=== PATIENT | male | born 1970 | race Caucasian/White ===

== ENCOUNTER 2021-07-26 08:27 | Observation (INO) ==
[2021-07-26 08:53] LABS: Basophils # 0.1 10*3/uL (0.0-0.2); Basophils % 1.2 % (0.0-0.8); Eosinophils # 0.3 10*3/uL (0.0-0.87); Eosinophils % 2.2 % (0.00-10.9); Hematocrit 44.7 VOL% (42.0-52.0); Hemoglobin 14.9 GM/DL (14.0-18.0); Immature Granulocytes % 0.4 %; Immature Granulocytes Absolute 0.05 #; Lymphocytes # 2.2 10*3/uL (1.4-4.0); Lymphocytes % 18.9 % (21.2-54.2); Mean Corpuscular HGB Conc 33.3 GM/DL (32-36); Mean Corpuscular Volume 85.3 FL (87-102); Mean Platelet Volume 11.3 FL (9.6-12.0); Monocytes % 6.9 % (1.7-12.7); Neutrophils % 70.4 % (38.7-73.9); Platelet Count 316 T/CUMM (130-400); Red Blood Count 5.24 MC/CUMM (3.8-5.5); Red Cell Distribution Width 13.7 % (9.3-17.3); White Blood Count 11.6 T/CUMM (4-12)
[2021-07-26] MEDS ORDERED: ASPIRIN 325 MG TABLET PO STA ×2 (09:03→09:13)
[2021-07-26] MEDS ORDERED: NITROGLYCERIN 2% OINT 1 INCH/GM PACK TOP STA (09:13)
[2021-07-26 09:19] LABS: Basophils # 0.1 10*3/uL (0.0-0.2); Basophils % 1.1 % (0.0-0.8); Eosinophils # 0.2 10*3/uL (0.0-0.87); Eosinophils % 2.1 % (0.00-10.9); Hematocrit 43.5 VOL% (42.0-52.0); Hemoglobin 14.2 GM/DL (14.0-18.0); Immature Granulocytes % 0.5 %; Immature Granulocytes Absolute 0.05 #; Lymphocytes # 2.2 10*3/uL (1.4-4.0); Lymphocytes % 19.8 % (21.2-54.2); Mean Corpuscular HGB Conc 32.6 GM/DL (32-36); Mean Corpuscular Volume 85.8 FL (87-102); Mean Platelet Volume 11.6 FL (9.6-12.0); Monocytes % 6.7 % (1.7-12.7); Neutrophils % 69.8 % (38.7-73.9); Platelet Count 303 T/CUMM (130-400); Red Blood Count 5.07 MC/CUMM (3.8-5.5); Red Cell Distribution Width 13.9 % (9.3-17.3); White Blood Count 10.9 T/CUMM (4-12)
[2021-07-26 09:21] LABS: Albumin 3.5 G/DL (3.4-5.0); Bilirubin,Total 0.9 MG/DL (0.20-1.00); Calcium 8.7 MG/DL (8.5-10.1); Osmolality,Calculated 279.8 MOS/KG (273-304); Potassium 3.8 MMOL/L (3.5-5.1); Total Protein 7.7 G/DL (6.4-8.2)
[2021-07-26 09:35] LABS: PT Patient Result 11.6 SECS (10.5-12.0); Partial Thromboplastin Time 32.8 SECS (23.9-33.8)
[2021-07-26 10:02] LABS: Atypical Lymphocytes Few; Platelet Estimate Increased
[2021-07-26] MEDS ORDERED: ONDANSETRON 4 MG/2 ML VIAL IV PRN (11:18)
[2021-07-26] MEDS ORDERED: ACETAMINOPHEN 325 MG TABLET PO PRN (11:18)
[2021-07-26] MEDS ORDERED: GLUCAGON 1 MG VIAL IM PRN (11:18)
[2021-07-26] MEDS ORDERED: traZODone 50 MG TABLET PO PRN (11:18)
[2021-07-26] MEDS ORDERED: DOCUSATE SODIUM 100 MG CAPSULE PO PRN (11:18)
[2021-07-26] MEDS ORDERED: LACTULOSE 20 GM/30 ML UDCUP PO PRN (11:18)
[2021-07-26] MEDS ORDERED: DEXTROSE 50% 25 GM/50 ML VIAL IV PRN (11:18)
[2021-07-26] MEDS ORDERED: NITROGLYCERIN SL 0.4 MG TABLET SL PRN (11:23)
[2021-07-26] MEDS ORDERED: MORPHINE 2 MG/1 ML SYRINGE IV PRN (11:23)
[2021-07-26] MEDS ORDERED: LOSARTAN 50 MG TABLET PO SCH (11:30)
[2021-07-26] MEDS ORDERED: ENOXAPARIN 40 MG/0.4 ML SYRINGE SUBCUT SCH (11:30)
[2021-07-26] MEDS: PANTOPRAZOLE 40 MG TABLET PO SCH (12:39)
[2021-07-26] MEDS: INSULIN REGULAR 100 UNIT/ML SUBCUT SCH ×3 (12:41→20:57)
[2021-07-26] MEDS ORDERED: carvediloL 3.125 MG TABLET PO STA ×2 (13:05→14:31)
[2021-07-26] MEDS: NICOTINE 21 MG/24 HR PATCH TRANSDERM SCH (13:12)
[2021-07-26 13:19] LABS: Bacteria,Urine Occasional /HPF (Few); Bilirubin,Urine Negative (Negative); Blood, Urine Negative (Negative); Glucose,Urine (UA) >=500 mg/dL (Negative); Ketones,Urine Negative (Negative); Mucus,Urine Occasional /LPF (Occasional); Nitrite,Urine Negative (Negative); Protein,Urine Negative; Urine Appearance CLEAR (Clear); Urine Color Straw (Yellow); Urine Specific Gravity 1.005 (1.001-1.035); Urine Urobilinogen < 2.0 EU/DL (0.2-1.0)
[2021-07-26] MEDS ORDERED: ALUM/MAG/SIMETH/LIDO VISC 1:1 30 ML BOTTLE PO STA (13:55)
[2021-07-26] MEDS: ROSUVASTATIN 20 MG TABLET PO SCH (14:35)
[2021-07-26] MEDS: carvediloL 3.125 MG TABLET PO SCH (20:06)
[2021-07-26] MEDS ORDERED: carvediloL 6.25 MG TABLET PO SCH (21:00)
[2021-07-27 04:56] LABS: Basophils # 0.2 10*3/uL (0.0-0.2); Basophils % 1.4 % (0.0-0.8); Eosinophils # 0.3 10*3/uL (0.0-0.87); Eosinophils % 2.7 % (0.00-10.9); Hematocrit 43.5 VOL% (42.0-52.0); Hemoglobin 14.1 GM/DL (14.0-18.0); Immature Granulocytes % 0.5 %; Immature Granulocytes Absolute 0.06 #; Lymphocytes # 3.3 10*3/uL (1.4-4.0); Lymphocytes % 27.7 % (21.2-54.2); Mean Corpuscular HGB Conc 32.4 GM/DL (32-36); Mean Corpuscular Volume 87.2 FL (87-102); Mean Platelet Volume 11.6 FL (9.6-12.0); Monocytes % 8.3 % (1.7-12.7); Neutrophils % 59.4 % (38.7-73.9); Platelet Count 265 T/CUMM (130-400); Red Blood Count 4.99 MC/CUMM (3.8-5.5); Red Cell Distribution Width 13.7 % (9.3-17.3); White Blood Count 12.1 T/CUMM (4-12)
[2021-07-27 05:06] LABS: Calcium 8.2 MG/DL (8.5-10.1); Osmolality,Calculated 283.4 MOS/KG (273-304); Potassium 3.9 MMOL/L (3.5-5.1)
[2021-07-27 05:10] LABS: Risk Ratio 5.77
[2021-07-27 08:23] VITALS: BP 166/73
[2021-07-27] MEDS ORDERED: ASPIRIN EC 81 MG TABLET PO SCH (09:00)
[2021-07-27] MEDS ORDERED: ASPIRIN EC 325 MG TABLET PO SCH (09:00)
[2021-07-27] MEDS: INSULIN REGULAR 100 UNIT/ML SUBCUT SCH (09:16)
[2021-07-27] MEDS: ROSUVASTATIN 20 MG TABLET PO SCH (09:29)
[2021-07-27] MEDS: carvediloL 3.125 MG TABLET PO SCH (09:29)
[2021-07-27] MEDS: PANTOPRAZOLE 40 MG TABLET PO SCH (09:29)
[2021-07-27] MEDS: NICOTINE 21 MG/24 HR PATCH TRANSDERM SCH (09:37)
== END 2021-07-27 10:51 | disposition home or self-care (01) ==
LOC: N.EDINP 08:27 → N.ED 08:27 → N.EDINP 18:12 → N.TELES 18:18
PROVIDERS: ADMIT Hospitalist; ATTEND Hospitalist